=== PATIENT | female | born 1965 | race Caucasian/White ===

== ENCOUNTER 2020-07-31 08:49 | Day surgery (SDC) | payer MEDICAID ==
[2020-07-28 11:16] LABS: COVID AG,FIA SOURCE NASOPHARYNGEAL
[~2020-07-31] VITALS: Ht 157.5 cm; Wt 65.5 kg
[~2020-07-31 08:49] MED LIST: SODIUM CHLORIDE 0.9% 1,000 ML IV ONE; SODIUM CHLORIDE 0.9% 1,000 ML ONE
[2020-07-31] MEDS ORDERED: LIDOCAINE/PF 2% 5 ML VIAL IM ONE (08:50)
[2020-07-31] MEDS ORDERED: PROPOFOL 1% 20 ML VIAL IVP ONE (08:50)
[2020-07-31 09:52] LABS: GLUCOMETER DEV NAME(LOC) SDS.; GLUCOSE,POINT OF CARE 197 MG/DL (70-110)
[2020-07-31] MEDS ORDERED: CLOP75TA32 PO (10:05)
[2020-07-31] MEDS ORDERED: ATOR40TA71 PO (10:05)
[2020-07-31] MEDS ORDERED: CARV12.530 PO (10:05)
[2020-07-31] MEDS ORDERED: ASPI-1444 PO (10:05)
[2020-07-31] MEDS ORDERED: LINA5TAB PO (10:05)
[2020-07-31] MEDS ORDERED: FURO20TA4 PO (10:05)
[2020-07-31] MEDS ORDERED: ALLO100T PO (10:05)
[2020-07-31] MEDS ORDERED: NITR0.4T50 SL (10:05)
== END 2020-07-31 12:35 | disposition home or self-care (01) ==
LOC: SURGERY 08:49
PROVIDERS: ATTEND Internal Medicine Gastroenterology
DX: D50.9 Iron deficiency anemia, unspecified (principal); D12.3 Benign neoplasm of transverse colon; K29.50 Unspecified chronic gastritis without bleeding; K57.30 Diverticulosis of large intestine without perforation or abscess without bleeding; K64.8 Other hemorrhoids; I10 Essential (primary) hypertension; D64.9 Anemia, unspecified; I25.10 Atherosclerotic heart disease of native coronary artery without angina pectoris; E66.3 Overweight; E78.5 Hyperlipidemia, unspecified; K21.9 Gastro-esophageal reflux disease without esophagitis; E11.9 Type 2 diabetes mellitus without complications; Z79.899 Other long term (current) drug therapy; Z98.890 Other specified postprocedural states
CPT/HCPCS: 43239; 45385; 82962; 87426; 88305; 88312; 88313; 93005; C1769; C9803; J2704; J3490; J7030